=== PATIENT | male | born 1955 | race Caucasian/White ===

== ENCOUNTER 2017-04-14 13:08 | Emergency (ER) | payer SELFPAY ==
[~2017-04-14] VITALS: Ht 177.8 cm; Wt 106.6 kg
[2017-04-14 14:14] VITALS: BP 166/95
[2017-04-14] MEDS ORDERED: LISI10TA2 PO (14:23)
[2017-04-14] MEDS ORDERED: METF850T2 PO (14:23)
== END 2017-04-14 14:47 | disposition left against medical advice (07) ==
LOC: ER 13:12
DX: J11.1 Influenza due to unidentified influenza virus with other respiratory manifestations (principal)
CPT/HCPCS: 99281

== ENCOUNTER 2017-10-23 20:42 | Emergency (ER) | payer SELFPAY ==
[~2017-10-23] VITALS: Ht 177.8 cm; Wt 104.3 kg
[~2017-10-23 20:42] MED LIST: LISI10TA2 PO; METF-398 PO
--- NOTE | 2017-10-23 22:36 | ED General ---
General Chief Complaint: General Problems/Pain Stated Complaint: POSS SINUS INFECTION,THROAT PAIN,ALLERGIES Nursing Triage Note: LEFT EAR PAIN, WAS PREVIOUSLY TOLD HE HAD "BLCOKAGE". FEELS LIKE HE HAS LOTS OF SINUS DRAINAGE Nursing Sepsis Screen: No Definite Risk Source of Information: Patient Exam Limitations: No Limitations History of Present Illness Date Seen by Provider: Oct 23, 2017 Time Seen by Provider: 22:32 Initial Comments To ER with what he believes is acid reflux. He states that for a long time he's had a burning sensation in his central chest radiating through to his back, worse in the mornings and better throughout the day. These symptoms have also improved since he lost about 60 pounds of weight and reduced soda intake. However, recently he's had a thick whitish sputum that he is able to expectorate when he clears his throat. He denies a cough. Report chronic shortness of breath and states, "I get so winded". He reports this pain is improved if he sleeps with the head of his bed elevated or in a recliner. However, he also states that he's had worsening of pain in his chest and back when he exerts himself. He follows with [facility]. Last week he had an echocardiogram and a stress test at [facility]. He believes this to be acid reflux and states he just needs a strong acid equipment sterilizer. Timing/Duration: 1-2 Days Severity: Moderate Associated Systoms: No Cough, No Nausea/Vomiting Allergies and Home Medications Allergies Coded Allergies: ciprofloxacin (Verified Allergy, Unknown, 04/14/17) doxycycline (Verified Allergy, Unknown, 04/14/17) indomethacin (Verified Allergy, Unknown, 04/14/17) iodine (Verified Allergy, Unknown, 04/14/17) metronidazole (Verified Allergy, Unknown, 04/14/17) omega-3 acid ethyl esters (Verified Allergy, Unknown, 04/14/17) sulfamethoxazole (Verified Allergy, Unknown, 04/14/17) tetracycline (Verified Allergy, Unknown, 04/14/17) trimethoprim (Verified Allergy, Unknown, 04/14/17) Home Medications Lisinopril 10 Mg Tablet, 10 MG PO DAILY, (Reported) Pantoprazole Sodium 40 Mg Tablet., 40 MG PO DAILY Prescribed by: JENNIE WADE on 10/23/17 8404 Patient Home Medication List Home Medication List Reviewed: Yes Review of Systems Review of Systems Constitutional: see HPI EENTM: see HPI Respiratory: no symptoms reported Cardiovascular: no symptoms reported Gastrointestinal: heartburn Genitourinary: no symptoms reported Skin: no symptoms reported Psychiatric/Neurological: No Symptoms Reported Hematologic/Lymphatic: No Symptoms Reported Past Vbxtijx-Tqyyhe-Zapxmm Hx Patient Social History Alcohol Use: Denies Use Recreational Drug Use: No Smoking Status: Never a Smoker Recent Foreign Travel: No Contact w/Someone Who Travel: No Recent Infectious Disease Expo: No Physical Abuse: No Sexual Abuse: No Past Medical History Surgeries: No Respiratory: No Cardiac: Yes Hypertension Neurological: No Genitourinary: No Gastrointestinal: No Musculoskeletal: No Endocrine: Yes Diabetes, Non-Insulin dep HEENT: No Cancer: No Psychosocial: No Integumentary: No Blood Disorders: No Physical Exam Vital Signs Vital Signs - First Documented 10/23/17 21:27 Temp 98.3 Pulse 80 Resp 12 B/P (MAP) 148/103 (118) Pulse Ox 97 Capillary Refill : Less Than 3 Seconds Height, Weight, BMI Height: 5'10.00" Weight: 230lbs. oz. 104.535372go; BMI Method:Stated General Appearance: No Apparent Distress, WD/WN Eyes: Bilateral Eye Normal Inspection, Bilateral Eye PERRL, Bilateral Eye EOMI HEENT: PERRL/EOMI, TMs Normal Neck: Full Range of Motion, Normal Inspection Respiratory: Chest Non Tender, Lungs Clear, Normal Breath Sounds, No Accessory Muscle Use, No Respiratory Distress Cardiovascular: Regular Rate, Rhythm, Normal Peripheral Pulses Gastrointestinal: Normal Bowel Sounds, Non Tender, Soft Extremity: Normal Capillary Refill, Normal Inspection Neurologic/Psychiatric: Alert, Oriented x3 Skin: Normal Color, Warm/Dry Progress/Results/Core Measures Suspected Sepsis Recent Fever Within 48 Hours: No Infection Criteria Present: None New/Unexplained Altered Menta: No Sepsis Screen: No Definite Risk SIRS Temperature:98.3 Pulse: 80 Respiratory Rate: 12 Blood Pressure 148 /103 Mean: 118 Results/Orders Vital Signs/I&O 10/23/17 21:27 Temp 98.3 Pulse 80 Resp 12 B/P (MAP) 148/103 (118) Pulse Ox 97 Capillary Refill : Less Than 3 Seconds Blood Pressure Mean: 118 Departure Communication (Admissions) 1690-I was able to obtain records from [facility]. Echocardiogram shows estimated left ventricular ejection fraction 60-65% with grade 1 diastolic dysfunction present consistent with mild impaired relaxation and normal filling pressures. Trace mitral valve regurgitation present and mild concentric left ventricular hypertrophy is present dictated by Dr. Avtar Petit. This was done on October 16, 2017. On October 142017 he had a treadmill stress test which was ultimately discontinued at the patient's request due to shortness of breath. Patient denies anginal type chest pain during exercise and during recovery phase. Burning type shortness of breath rapidly improved and had resolved by the end of the recovery phase. EKGs are negative for abnormal ischemic type flat downsloping ST segment depression - 1 mm or more. Impression Primary Impression: GERD (gastroesophageal reflux disease) Disposition: HOME, SELF-CARE Condition: Stable Departure-Patient Inst. Decision time for Depature: 22:41 Referrals: NO,LOCAL PHYSICIAN (PCP/Family) Primary Care Physician Patient Instructions: Acid Reflux (Gastroesophageal Reflux Disease) in Adults Add. Discharge Instructions: 1. Follow-up with her primary care provider later this week 2. Return to ER for any concerns, chest pain back pain or shortness of breath. All discharge instructions reviewed with patient and/or family. Voiced understanding. Scripts Sucralfate (Carafate) 1 Gm Tablet 1 GM PO ACH, #40 TAB Prov: JENNIE WADE APRN 10/23/17 Pantoprazole Sodium (Protonix) 40 Mg Tablet. 40 MG PO DAILY, #30 TAB Prov: JENNIE WADE APRN 10/23/17 JENNIE WADE APRN Oct 23, 2017 22:35
--- OUTSIDE RECORDS SUMMARY | 2017-10-23 22:41 | XMS REPORT ---
Author Author DEVIN ROMANO [facility] Address Unknown Care Team Providers Care Optical Lab Technician Name Role Phone DEVIN ROMANO Unavailable PROBLEMS Unknown Problems ALLERGIES Substance Reaction Event Type Date Status Sulfamethoxazole Unknown Drug Allergy June, Active Iodine Unknown Drug Allergy June, Active Flagyl Unknown Drug Allergy June, Active Codeine Sulfate Unknown Drug Allergy June, Active Cipro Unknown Drug Allergy June, Active Bactrim Unknown Drug Allergy June, Active Aspirin Unknown Drug Allergy June, Active ENCOUNTERS Encounter Location Date Diagnosis [facility] [id number] [place], [place] [id number] June, Dental examination Z01.20 and Dental caries K02.9 IMMUNIZATIONS No Known Immunizations SOCIAL HISTORY Never Assessed REASON FOR VISIT annelise PLAN OF CARE Activity Details Follow Up prn Reason:will call VITAL SIGNS Blood pressure systolic 138 mmHg 2017-06-20 Blood pressure diastolic 84 mmHg 2017-06-20 MEDICATIONS Medication Instructions Dosage Frequency Start Date End Date Duration Status Metformin HCl Active Pantoprazole Sodium Active Lisinopril Active RESULTS No Results PROCEDURES Procedure Date Ordered Result Body Site LTD ORAL EVALUATION - PROBLEM FOCUS June 20, 2017 INTRAORL-PERIAPICAL 1 FILM [id number] June 20, 2017 EXTRAC ERUPTED TOOTH/EXPOSED ROOT June 20, 2017 INSTRUCTIONS MEDICATIONS ADMINISTERED No Known Medications MEDICAL (GENERAL) HISTORY Type Description Date Medical History Diabetes Medical History HBP
[2017-10-23] MEDS ORDERED: PANT40TA2 PO (22:44)
[2017-10-23] MEDS ORDERED: SUCR1TAB36 PO (22:55)
[2017-10-23 23:13] VITALS: BP 138/100
== END 2017-10-23 23:13 | disposition home or self-care (01) ==
LOC: EDUNIT# 20:42 → ER 20:43
DX: K21.9 Gastro-esophageal reflux disease without esophagitis (principal); I10 Essential (primary) hypertension; E11.9 Type 2 diabetes mellitus without complications; Z88.0 Allergy status to penicillin; Z88.8 Allergy status to other drugs, medicaments and biological substances; Z91.041 Radiographic dye allergy status; Z88.1 Allergy status to other antibiotic agents
CPT/HCPCS: 99281

== ENCOUNTER 2018-10-29 09:55 | Emergency (ER) | payer SELFPAY ==
[~2018-10-29] VITALS: Ht 183 cm; Wt 106.2 kg
[~2018-10-29 09:55] MED LIST changes: +PANT40TA2 PO; +SUCR1TAB36 PO
--- NOTE | 2018-10-29 10:35 | ED Abdominal Pain ---
General Chief Complaint: Abdominal/GI Problems Stated Complaint: DIARRHEA; ABD PAIN Nursing Triage Note: PT REPORTS HE WAS STARTED BACK ON METFORMIN 500 MG DAILY FOR THE PAST 45 DAYS AND HAS HAD SEVERAL GI SYMPTOMS SUCH DIARRHEA. PT REPORTS HE HAD BEEN OFF OF METFORMIN FOR ABOUT 6-8 MONTHS PRIOR TO STARTING BACK ON IT. [facility] FROM [facility] SENT PT FOR A CT SCAN OF THE ABDOMEN. Sepsis Screen: No Definite Risk Source of Information: Patient Exam Limitations: No Limitations History of Present Illness Date Seen by Provider: Oct 29, 2018 Time Seen by Provider: 10:30 Initial Comments The patient is a 63-year-old white male. He is a type II rlc-autliyk-dzmihriil diabetic. He reports that he had previously taken metformin and had been off of this for perhaps 6 months. More recently he was restarted on metformin and apparently the product appears different. He is unable to state with confidence whether this is an extended release product or not. He has been taking 500 mg daily. For the last few days he has had diarrhea which is disturbing. He also gives a history of episodic constipation and left lower quadrant pain. He has not had a colonoscopy previously. He also describes significant what he believes to be GERD and this seemed to get worse with the re-institution of metformin. He has had no previous surgical procedures. He apparently drives a truck. He reports that when doing physical labor his blood sugar runs better than when he is sedentary. Timing/Duration: 3-4 Days Severity/Quality: Moderate Associated Symptoms: Heartburn, Other (no hematochezia or melena) Allergies and Home Medications Allergies Coded Allergies: ciprofloxacin (Verified Allergy, Unknown, 04/14/17) doxycycline (Verified Allergy, Unknown, 04/14/17) indomethacin (Verified Allergy, Unknown, 04/14/17) iodine (Verified Allergy, Unknown, 04/14/17) metronidazole (Verified Allergy, Unknown, 04/14/17) omega-3 acid ethyl esters (Verified Allergy, Unknown, 04/14/17) sulfamethoxazole (Verified Allergy, Unknown, 04/14/17) tetracycline (Verified Allergy, Unknown, 04/14/17) trimethoprim (Verified Allergy, Unknown, 04/14/17) Home Medications Lisinopril 10 Mg Tablet, 10 MG PO DAILY, (Reported) Pantoprazole Sodium 40 Mg Tablet.dr, 40 MG PO DAILY [place] [id number] Sucralfate 1 Gm Tablet, 1 GM PO ACHS Prescribed by: JENNIE WADE on 10/23/172254 Patient Home Medication List Home Medication List Reviewed: Yes Review of Systems Review of Systems Constitutional: see HPI EENTM: No Symptoms Reported Respiratory: No Symptoms Reported Cardiovascular: No Symptoms Reported Gastrointestinal: See HPI Genitourinary: No Symptoms Reported Musculoskeletal: no symptoms reported Skin: no symptoms reported Psychiatric/Neurological: No Symptoms Reported Endocrine: No Symptoms Reported Hematologic/Lymphatic: No Symptoms Reported Past Azcgmfi-Kfiayn-Hvpuch Hx Patient Social History Alcohol Use: Denies Use Recreational Drug Use: No Smoking Status: Never a Smoker 2nd Hand Smoke Exposure: No Recent Foreign Travel: No Contact w/Someone Who Travel: No Recent Infectious Disease Expo: No Physical Abuse: No Sexual Abuse: No Mistreated: No Fear: No Past Medical History Surgeries: No Respiratory: No Cardiac: Yes Hypertension Neurological: No Genitourinary: No Gastrointestinal: Yes Gastroesophageal Reflux Musculoskeletal: No Endocrine: Yes Diabetes, Non-Insulin dep HEENT: No Cancer: No Psychosocial: No Integumentary: No Blood Disorders: No Physical Exam Vital Signs Vital Signs - First Documented 10/29/18 10:05 Temp 37.2 Pulse 77 Resp 18 B/P (MAP) 146/78 (100) O2 Delivery Room Air Capillary Refill : Less Than 3 Seconds Height/Weight/BMI Height: 5'10.00" Weight: 230lbs. oz. 104.423385yk; 31.00 BMI Method:Stated General Appearance: mild distress HEENT: normal ENT inspection Neck: full range of motion Respiratory: chest non-tender, lungs clear, normal breath sounds, no respiratory distress, no accessory muscle use Cardiovascular: normal peripheral pulses, regular rate, rhythm, no edema, no gallop, no JVD, no murmur Gastrointestinal: normal bowel sounds, non tender, soft, no organomegaly, no pulsatile mass, other (obese) Extremities: normal range of motion, non-tender, normal inspection, no pedal edema, no calf tenderness, normal capillary refill, pelvis stable Back: normal inspection Neurologic/Psychiatric: pari mutuel clerk II-XII nml as tested, no motor/sensory deficits, alert, normal mood/affect, oriented x 3 Skin: normal color, warm/dry Lymphatic: no adenopathy Progress/Results/Core Measures Results/Orders Lab Results Laboratory Tests Test 10/29/18 10:31 Range/Units White Blood Count 11.0 4.3-11.0 10^3/uL Red Blood Count 5.04 4.35-5.85 10^6/uL Hemoglobin 15.4 13.3-17.7 G/DL Hematocrit 44 40-54 % Mean Corpuscular Volume 88 80-99 FL Mean Corpuscular Hemoglobin 31 25-34 PG Mean Corpuscular Hemoglobin Concent 35 32-36 G/DL Red Cell Distribution Width 12.5 10.0-14.5 % Platelet Count 244 130-400 10^3/uL Mean Platelet Volume 9.6 7.4-10.4 FL Neutrophils (%) (Auto) 61 42-75 % Lymphocytes (%) (Auto) 20 12-44 % Monocytes (%) (Auto) 5 0-12 % Eosinophils (%) (Auto) 13 H 0-10 % Basophils (%) (Auto) 1 0-10 % Neutrophils # (Auto) 6.8 1.8-7.8 X 10^3 Lymphocytes # (Auto) 2.2 1.0-4.0 X 10^3 Monocytes # (Auto) 0.6 0.0-1.0 X 10^3 Eosinophils # (Auto) 1.4 H 0.0-0.3 10^3/uL Basophils # (Auto) 0.1 0.0-0.1 10^3/uL Sodium Level 133 L 135-145 MMOL/L Potassium Level 4.2 3.6-5.0 MMOL/L Chloride Level 95 L 98-107 MMOL/L Carbon Dioxide Level 24 21-32 MMOL/L Anion Gap 14 5-14 MMOL/L Blood Urea Nitrogen 14 7-18 MG/DL Creatinine 0.90 0.60-1.30 MG/DL Estimat Glomerular Filtration Rate > 60 BUN/Creatinine Ratio 16 Glucose Level 236 H 70-105 MG/DL Calcium Level 9.3 8.5-10.1 MG/DL Corrected Calcium 9.4 8.5-10.1 MG/DL Total Bilirubin 0.3 0.1-1.0 MG/DL Aspartate Amino Transf (AST/SGOT) 23 5-34 U/L Alanine Aminotransferase (ALT/SGPT) 31 0-55 U/L Alkaline Phosphatase 85 40-136 U/L Total Protein 7.3 6.4-8.2 GM/DL Albumin 3.9 3.2-4.5 GM/DL Lipase 30 8-78 U/L My Orders Orders - CARLOS PAIGE MD Cbc With Automated Diff (10/29/18 10:29) Comprehensive Metabolic Panel (10/29/18 10:29) Lipase (10/29/18 10:29) Ua Culture If Indicated (10/29/18 10:29) Ct Abdomen/Pelvis Wo (10/29/18 11:15) Vital Signs/I&O 10/29/18 10:05 Temp 37.2 Pulse 77 Resp 18 B/P (MAP) 146/78 (100) O2 Delivery Room Air Blood Pressure Mean: 100 Departure Communication (Admissions) 1206 CT report returned without any clear evidence of pathology. Impression Primary Impression: Diarrhea Disposition: 01 HOME, SELF-CARE Condition: Stable/Unchanged Departure-Patient Inst. Decision time for Depature: 12:03 Referrals: NO,LOCAL PHYSICIAN (PCP/Family) Primary Care Physician Patient Instructions: Diarrhea and Traveler's Diarrhea, Adult (DC) Add. Discharge Instructions: All discharge instructions reviewed with patient and/or family. Voiced understa nding. Stop metformin. It may take a week or more to resolve your diarrhea. Make follow-up appointment with your provider for suggestions on alternate diabetic medications. It is advised that you continue to seek arrangements for outpatient colonoscopy. CARLOS PAIGE MD Oct 29, 2018 10:35
[2018-10-29 10:39] LABS: BASOPHILS # (AUTO) 0.1 10^3/uL (0.0-0.1); BASOPHILS % (AUTO) 1 % (0-10); EOSINOPHILS # (AUTO) 1.4 10^3/uL (0.0-0.3); EOSINOPHILS % (AUTO) 13 % (0-10); HEMATOCRIT 44 % (40-54); HEMOGLOBIN 15.4 G/DL (13.3-17.7); LYMPHOCYTES # (AUTO) 2.2 X 10^3 (1.0-4.0); LYMPHOCYTES % (AUTO) 20 % (12-44); MEAN CORPUSCULAR HEMOGLOBIN 31 PG (25-34); MEAN CORPUSCULAR HGB CONC 35 G/DL (32-36); MEAN CORPUSCULAR VOLUME 88 FL (80-99); MEAN PLATELET VOLUME 9.6 FL (7.4-10.4); MONOCYTES # (AUTO) 0.6 X 10^3 (0.0-1.0); MONOCYTES % (AUTO) 5 % (0-12); NEUTROPHILS # (AUTO) 6.8 X 10^3 (1.8-7.8); NEUTROPHILS % (AUTO) 61 % (42-75); PLATELET COUNT 244 10^3/uL (130-400); RED CELL DISTRIBUTION WIDTH 12.5 % (10.0-14.5)
[2018-10-29 11:01] LABS: ALANINE AMINOTRANSFERASE 31 U/L (0-55); ALBUMIN 3.9 GM/DL (3.2-4.5); ALKALINE PHOSPHATASE 85 U/L (40-136); BILIRUBIN,TOTAL 0.3 MG/DL (0.1-1.0); BUN/CREATININE RATIO 16; CALCIUM 9.3 MG/DL (8.5-10.1); CARBON DIOXIDE 24 MMOL/L (21-32); CHLORIDE 95 MMOL/L (98-107); GFR ESTIMATED > 60; GLUCOSE 236 MG/DL (70-105); LIPASE 30 U/L (8-78); POTASSIUM 4.2 MMOL/L (3.6-5.0); SODIUM 133 MMOL/L (135-145); TOTAL PROTEIN 7.3 GM/DL (6.4-8.2)
--- NOTE | 2018-10-29 11:47 | Diagnostic Imaging Report ---
PROCEDURE: CT abdomen and pelvis without contrast. TECHNIQUE: Multiple contiguous axial images were obtained through the abdomen and pelvis without the use of intravenous contrast. Auto Exposure Controls were utilized during the CT exam to meet ALARA standards for radiation dose reduction. INDICATION: Upper abdominal pain. Findings: No comparison available. Limited views of the lower thorax are unremarkable. The liver is normal without focal lesion. No biliary ductal dilation. Gallbladder is normal. Pancreas, spleen and adrenal glands are normal. There is a cyst in the right kidney. No renal or ureteral calculi are seen. No hydronephrosis. Urinary bladder is normal. There are no dilated loops of large or small bowel. No obstruction or inflammation. The appendix is normal. No free fluid or air. No abdominal or pelvic lymphadenopathy. Aorta is normal in caliber without aneurysm. There are no suspicious osseus lesions. Impression: 1. No acute abnormality in the abdomen or pelvis. Dictated by: Dictated on workstation # [id number]
[2018-10-29 12:45] VITALS: BP 112/67
== END 2018-10-29 12:14 | disposition home or self-care (01) ==
LOC: EDUNIT# 09:55 → ER FS 09:58
DX: R19.7 Diarrhea, unspecified (principal); T38.3X5A Adverse effect of insulin and oral hypoglycemic [antidiabetic] drugs, initial encounter; E11.9 Type 2 diabetes mellitus without complications; K21.9 Gastro-esophageal reflux disease without esophagitis; I10 Essential (primary) hypertension; Z88.1 Allergy status to other antibiotic agents; Z88.8 Allergy status to other drugs, medicaments and biological substances; Z88.2 Allergy status to sulfonamides; Z79.84 Long term (current) use of oral hypoglycemic drugs
CPT/HCPCS: 36415; 74176; 80053; 83690; 85025

== ENCOUNTER 2021-12-01 15:34 | Emergency (ER) | payer OTHER ==
[~2021-12-01] VITALS: Ht 177.8 cm; Wt 95.7 kg
[~2021-12-01 15:34] MED LIST changes: -LISI10TA2 PO; +LISI10TA25 PO
--- NOTE | 2021-12-01 16:43 | ED Lower Extremity ---
General Chief Complaint: Lower Extremity Stated Complaint: TOES ON RIGHT FOOT ARE BLACK Nursing Triage Note: PT AMB TO FT 1. PT STATED THAT HE GOT A NEW PAIR OF SHOES AND DEVELOPED BLISTERS ON HIS TOES ON THE RIGHT FOOT. PT WAS SEEN A WEEK AGO AT [facility] AND PUT ON ANTIBIOTICS. PULSES ARE PRESENT. Source: patient, family () Exam Limitations: no limitations (JOYCE YANG) History of Present Illness Date Seen by Provider: Dec 01, 2021 Time Seen by Provider: 16:00 Initial Comments This 66 year old male presents with reported right foot wounds. Patient reports last Friday morning, 11/24/21, he noticed blisters on top of his right toes. He states he recently got a new pair of shoes, is a lift truck mechanic, and has a PMHx significant for insulin dependent type 2 diabetes. Patient states on Friday the blisters were sloughing off and developing into wounds on his toes. Patient reports he went to walk-in care and received cephalexin and a topical cream that same day. Patient states later in the week on Friday and Friday he received penicillin injections from [facility]. Patient denies any pain in his foot but does admit to pain in his right saunders. Patient states earlier in the week his right foot was red and swollen but states the swelling has gone down. Patient denies fever, aches, chills, chest pain, SOA, abdominal pain, N/V/D, or weakness. Patient reports a history of suspected neuropathy of bilateral feet with mild paresthesias in his feet. Onset: other (11/25/2021) Severity: moderate Pain/Injury Location: right foot, right 1st toe, right 2nd toe, right 3rd toe, right 4th toe, right 5th toe Method of Injury: unknown (JOYCE YANG) Allergies and Home Medications Allergies Coded Allergies: ciprofloxacin (Verified Allergy, Unknown, 04/14/17) doxycycline (Verified Allergy, Unknown, 04/14/17) indomethacin (Verified Allergy, Unknown, 04/14/17) iodine (Verified Allergy, Unknown, 04/14/17) metronidazole (Verified Allergy, Unknown, 04/14/17) omega-3 acid ethyl esters (Verified Allergy, Unknown, 04/14/17) sulfamethoxazole (Verified Allergy, Unknown, 04/14/17) tetracycline (Verified Allergy, Unknown, 04/14/17) trimethoprim (Verified Allergy, Unknown, 04/14/17) Patient Home Medication List Home Medication List Reviewed: Yes (JOYCE YANG) Lisinopril (Lisinopril) 10 Mg Tablet, 10 MG PO DAILY, (Reported) Entered as Reported by: ROBI ASCENCIO on 04/14/17 1423 Metformin HCl (Metformin HCl) 850 Mg Tablet, 850 MG PO, (Reported) Entered as Reported by: ROBI ASCENCIO on 04/14/17 1423 Pantoprazole Sodium (Protonix) 40 Mg Tablet.dr, 40 MG PO DAILY Prescribed by: JENNIE WADE on 10/23/17 8982 Sucralfate (Carafate) 1 Gm Tablet, 1 GM PO ACHS Prescribed by: JENNIE WADE on 10/23/17 0693 Review of Systems Constitutional: no symptoms reported EENTM: no symptoms reported Respiratory: no symptoms reported Cardiovascular: no symptoms reported Gastrointestinal: no symptoms reported Genitourinary: no symptoms reported Musculoskeletal: other (right lower leg pain) Skin: other (wound of right foot involving all five digits) Psychiatric/Neurological: No Symptoms Reported (JOYCE YANG) Past Useikqc-Obxlrn-Vselvv Hx Patient Social History Tobacco Use?: No Substance use?: No Alcohol Use?: No (JOYCE YANG) Past Medical History Surgery/Hospitalization HX: DIABETIC - TYPE 2 HTN Surgeries: No Respiratory: No Cardiac: Yes Hypertension Neurological: No Genitourinary: No Gastrointestinal: Yes Gastroesophageal Reflux Musculoskeletal: No Endocrine: Yes Diabetes, Non-Insulin dep HEENT: No Cancer: No Psychosocial: No Integumentary: No Blood Disorders: No (JOYCE YANG) Physical Exam Vital Signs Vital Signs - First Documented 12/01/21 15:57 Temp 37.5 Pulse 95 Resp 18 B/P (MAP) 128/83 (98) Pulse Ox 97 O2 Delivery Room Air (CANDI CRANDALL MD) Vital Signs Capillary Refill : Less Than 3 Seconds (JOYCE YANG) Height, Weight, BMI Height: 5'10.00" Weight: 230lbs. oz. [id number]; 30.00 BMI Method:Stated General Appearance: WD/WN, no apparent distress HEENT: PERRL/EOMI Cardiovascular: regular rate, rhythm, no murmur Respiratory: lungs clear, normal breath sounds, no respiratory distress, no accessory muscle use Gastrointestinal: normal bowel sounds, non tender, soft Feet: right foot non-tender, right foot normal range of motion, right foot abrasions/lacerations (wound of first-fifth digits involving surrounding tissue on the dorsal and plantar surfaces of the foot. Wound is necrotic with purulent slough and is malordorous. The second digit is black and necrotic ), right foot swelling (edema of dorsal surface of foot) (JOYCE YANG) Progress/Results/Core Measures Results/Orders Lab Results Laboratory Tests Test 12/01/21 16:43 Range/Units White Blood Count 10.8 4.3-11.0 10^3/uL Red Blood Count 5.33 4.30-5.52 10^6/uL Hemoglobin 16.1 13.3-17.7 g/dL Hematocrit 46 40-54 % Mean Corpuscular Volume 87 80-99 fL Mean Corpuscular Hemoglobin 30 25-34 pg Mean Corpuscular Hemoglobin Concent 35 32-36 g/dL Red Cell Distribution Width 12.0 10.0-14.5 % Platelet Count 295 130-400 10^3/uL Mean Platelet Volume 10.4 9.0-12.2 fL Immature Granulocyte % (Auto) 1 % Neutrophils (%) (Auto) 68 42-75 % Lymphocytes (%) (Auto) 18 12-44 % Monocytes (%) (Auto) 6 0-12 % Eosinophils (%) (Auto) 7 0-10 % Basophils (%) (Auto) 1 0-10 % Neutrophils # (Auto) 7.3 1.8-7.8 10^3/uL Lymphocytes # (Auto) 2.0 1.0-4.0 10^3/uL Monocytes # (Auto) 0.7 0.0-1.0 10^3/uL Eosinophils # (Auto) 0.7 H 0.0-0.3 10^3/uL Basophils # (Auto) 0.1 0.0-0.1 10^3/uL Immature Granulocyte # (Auto) 0.1 0.0-0.1 10^3/uL Sodium Level 131 L 135-145 MMOL/L Potassium Level 4.5 3.6-5.0 MMOL/L Chloride Level 97 L 98-107 MMOL/L Carbon Dioxide Level 22 21-32 MMOL/L Anion Gap 12 5-14 MMOL/L Blood Urea Nitrogen 16 7-18 MG/DL Creatinine 1.12 0.60-1.30 MG/DL Estimat Glomerular Filtration Rate 73 BUN/Creatinine Ratio 14 Glucose Level 337 H 70-105 MG/DL Calcium Level 9.8 8.5-10.1 MG/DL Corrected Calcium 9.6 8.5-10.1 MG/DL Total Bilirubin 0.4 0.1-1.0 MG/DL Aspartate Amino Transf (AST/SGOT) 16 5-34 U/L Alanine Aminotransferase (ALT/SGPT) 18 0-55 U/L Alkaline Phosphatase 79 40-136 U/L C-Reactive Protein High Sensitivity 2.67 H 0.00-0.50 MG/DL Total Protein 8.4 H 6.4-8.2 GM/DL Albumin 4.2 3.2-4.5 GM/DL (CANDI CRANDALL MD) My Orders Orders - CANDI CRANDALL MD Cbc With Automated Diff (12/01/21 16:36) Comprehensive Metabolic Panel (12/01/21 16:36) Hs C Reactive Protein (12/01/21 16:36) Ed Iv/Invasive Line Start (12/01/21 16:36) Tibia/Fibula, Right, 2 Views (12/01/21 16:36) Foot, Right, 3 View (12/01/21 16:36) Clindamycin 900 Mg/50 Ml Ivpb (Cleocin P (12/01/21 18:45) Ceftriaxone 1 Gm Pre-Mix (Rocephin 1 Gm (12/01/21 18:34) (CANDI CRANDALL MD) Vital Signs/I&O 12/01/21 15:57 Temp 37.5 Pulse 95 Resp 18 B/P (MAP) 128/83 (98) Pulse Ox 97 O2 Delivery Room Air (CANDI CRANDALL MD) Blood Pressure Mean: 98 Diagnostic Imaging Diagonstic Imaging: Xray Plain Films/CT/US/NM/MRI: leg Comments NAME: RUSSELL CARMONA [facility] REC#: [id number] PT STATUS: REG ER : 1955 PHYSICIAN: CANDI CRANDALL MD ADMIT DATE: 12/01/21/ER Signed Date of Exam:12/01/21 TIBIA/FIBULA, RIGHT, 2 VIEWS INDICATION: Foot and leg pain TECHNIQUE: AP and lateral views of the right tibia and fibula CORRELATION STUDY: None FINDINGS: The tibia and fibula are intact. Distal tibia and fibula incompletely imaged. There is no evidence for acute fracture. Limited visualized portions of the knee and ankle are unremarkable. Soft tissues are unremarkable. IMPRESSION: 1.Negative for acute bony abnormality of the right leg. Dictated by: Dictated on workstation # [id number] Dict: 12/01/211654 Trans: 12/01/211654 DO [id number] Interpreted by: SERGIO WORTHY DO Electronically signed by: SERGIO WORTHY DO 12/01/211654 (JOYCE YANG) Departure Impression Primary Impression: Cellulitis of right foot Additional Impressions: Gangrenous toe Poorly controlled diabetes mellitus Disposition: 01 HOME, SELF-CARE Condition: Stable Departure-Patient Inst. Decision time for Depature: 18:51 (CANDI CRANDALL MD) Referrals: [facility] [place] (PCP/Family) Primary Care Physician ALFRED MATIAS DO Patient Instructions: Cellulitis (Skin Infection), Adult ED, Diabetes and Diet, Gangrene Add. Discharge Instructions: Start your clindamycin antibiotic as prescribed and increase the frequency of Keflex (cephalexin) to 4 times daily. Keep your foot elevated to the level of your heart is much as possible. Use a clean gauze dressing to protect the skin. Do not wear closed toed shoes or boots until otherwise directed. Keep tight control of your blood sugars. Eat a diet very low in sugars and carbohydrates. Use your insulin as directed. Be sure not to remove the needle too quickly to allow adequate time for the insulin to infuse under your skin. Follow-up with Dr. Matias at 1:00 PM on Friday. Call to postpone your appointment with Dr. Miller. Return to care if you have worsening symptoms, especially if you develop fevers. All discharge instructions reviewed with patient and/or family. Voiced understanding. Scripts Cephalexin (Cephalexin) 500 Mg Tablet 500 MG PO QID, #40 TAB Prov: CANDI CRANDALL MD 12/01/21 Clindamycin HCl (Clindamycin HCl) 300 Mg Capsule 300 MG PO QID, #40 CAP Prov: CANDI CRANDALL MD 12/01/21 JOYCE YANG Dec 01, 2021 16:43 CANDI CRANDALL MD Dec 01, 2021 18:56
--- NOTE | 2021-12-01 16:57 | Diagnostic Imaging Report ---
INDICATION: Foot and leg pain TECHNIQUE: AP and lateral views of the right tibia and fibula CORRELATION STUDY: None FINDINGS: The tibia and fibula are intact. Distal tibia and fibula incompletely imaged. There is no evidence for acute fracture. Limited visualized portions of the knee and ankle are unremarkable. Soft tissues are unremarkable. IMPRESSION: 1.Negative for acute bony abnormality of the right leg. Dictated by: Dictated on workstation # [id number]
--- NOTE | 2021-12-01 17:07 | Diagnostic Imaging Report ---
INDICATION: Foot and leg pain. TECHNIQUE: 3 views of the right foot. CORRELATION STUDY: None. FINDINGS: The osseous structures of the foot are intact. Very minimal questionable irregularity questioned of the tibia and fibula. Mildly prominent spurlike formation o the plantar calcaneus. Joint spaces are maintained. Alignment anatomic. Soft tissues appearing unremarkable. IMPRESSION: Negative for acute findings of the foot. Questionable irregularity at the tibia-fibula. Correlation for any potential point tenderness in this area. Dictated by: Dictated on workstation # [id number]
[2021-12-01 17:15] LABS: BASOPHILS # (AUTO) 0.1 10^3/uL (0.0-0.1); BASOPHILS % (AUTO) 1 % (0-10); EOSINOPHILS # (AUTO) 0.7 10^3/uL (0.0-0.3); EOSINOPHILS % (AUTO) 7 % (0-10); HEMATOCRIT 46 % (40-54); HEMOGLOBIN 16.1 g/dL (13.3-17.7); LYMPHOCYTES % (AUTO) 18 % (12-44); MEAN CORPUSCULAR HEMOGLOBIN 30 pg (25-34); MEAN CORPUSCULAR HGB CONC 35 g/dL (32-36); MEAN CORPUSCULAR VOLUME 87 fL (80-99); MEAN PLATELET VOLUME 10.4 fL (9.0-12.2); MONOCYTES # (AUTO) 0.7 10^3/uL (0.0-1.0); MONOCYTES % (AUTO) 6 % (0-12); NEUTROPHILS # (AUTO) 7.3 10^3/uL (1.8-7.8); NEUTROPHILS % (AUTO) 68 % (42-75); PLATELET COUNT 295 10^3/uL (130-400); WHITE BLOOD COUNT 10.8 10^3/uL (4.3-11.0)
[2021-12-01 17:31] LABS: ALBUMIN 4.2 GM/DL (3.2-4.5); POTASSIUM 4.5 MMOL/L (3.6-5.0)
[2021-12-01 17:32] LABS: CALCIUM 9.8 MG/DL (8.5-10.1)
[2021-12-01 17:33] LABS: TOTAL PROTEIN 8.4 GM/DL (6.4-8.2)
[2021-12-01 17:35] LABS: BILIRUBIN,TOTAL 0.4 MG/DL (0.1-1.0)
[2021-12-01 17:37] LABS: CREATININE SERUM 1.12 MG/DL (0.60-1.30)
[2021-12-01] MEDS ORDERED: cefTRIAXone 1 GM PRE-MIX 50 ML IV STA (18:34)
[2021-12-01] MEDS ORDERED: CLINDAMYCIN 900 MG/50 ML IVPB 50 ML IV ONE (18:45)
[2021-12-01] MEDS ORDERED: CEPH500T PO (19:03)
[2021-12-01] MEDS ORDERED: CLIN-144 PO (19:03)
[2021-12-01 19:44] VITALS: BP 136/83
== END 2021-12-01 19:44 | disposition home or self-care (01) ==
LOC: EDUNIT# 15:34 → ER 15:37
DX: L03.115 Cellulitis of right lower limb (principal); E11.52 Type 2 diabetes mellitus with diabetic peripheral angiopathy with gangrene; E11.65 Type 2 diabetes mellitus with hyperglycemia; I96 Gangrene, not elsewhere classified; Z28.310 Unvaccinated for COVID-19; Z79.4 Long term (current) use of insulin
CPT/HCPCS: 36415; 73590; 73630; 80053; 85025; 86141